=== PATIENT | male | born 1975 | race Caucasian/White ===

== ENCOUNTER 2019-05-16 22:37 | Emergency (ER) | payer OTHER ==
[~2019-05-16] VITALS: Ht 175.3 cm; Wt 61.3 kg
[2019-05-17 02:27] VITALS: BP 115/84
== END 2019-05-17 02:27 | disposition short-term general hospital (02) ==
LOC: ED 05-17 00:12
DX: R65.21 Severe sepsis with septic shock (principal); J96.01 Acute respiratory failure with hypoxia; J15.9 Unspecified bacterial pneumonia; B37.0 Candidal stomatitis; R00.0 Tachycardia, unspecified; D84.9 Immunodeficiency, unspecified
CPT/HCPCS: 36415; 71045; 71275; 80053; 83605; 84145; 84484; 85025; 86701; 86702; 87040; 87389; 93005; 96365; 99291; J1956; J7030; Q9967